=== PATIENT | male | born 1985 | race Two or more races ===

== ENCOUNTER 2024-06-13 12:46 | Emergency (ER) | payer OTHER ==
[~2024-06-13] VITALS: Ht 177.8 cm; Wt 138.3 kg
[2024-06-13] MEDS ORDERED: ZESTRIL10 M1 PO (13:09)
[2024-06-13] MEDS ORDERED: HYDROCHLOROTH12.5 M2 PO (13:09)
[2024-06-13] MEDS ORDERED: ORPHENADRINE CITRATE 30 MG/ML AMPUL IM STA (13:48)
[2024-06-13] MEDS ORDERED: KETOROLAC TROMETHAMINE 60 MG VIAL IM STA (13:50)
[2024-06-13] MEDS ORDERED: KETOROLAC TROMETHAMINE 60 MG VIAL IM ONE (14:19)
[2024-06-13] MEDS ORDERED: ORPHENADRINE CITRATE 30 MG/ML AMPUL ONE (14:20)
== END 2024-06-13 16:17 | disposition home or self-care (01) ==
LOC: ER 12:49
DX: M54.50 Low back pain, unspecified (principal); I10 Essential (primary) hypertension